=== PATIENT | female | born 1960 | race Caucasian/White ===

== ENCOUNTER → 2017-07-14 13:24 | Outpatient (CLI) | payer BC ==
[2014-10-03 08:46] VITALS: BMI 34.4
[~2017-07-14 13:24] MED LIST: HYZAAR 50-12.51 TAB PO; LEXAPRO20 MG PO; LOPID600 MG PO; PRAVACHOL20 MG PO
== END | disposition home or self-care (01) ==
LOC: D.MAMMO 09:15
DX: Z12.31 Encounter for screening mammogram for malignant neoplasm of breast (principal)

== ENCOUNTER 2018-04-13 13:00 | Emergency (ER) | payer BC ==
[~2018-04-13] VITALS: Ht 162.6 cm; Wt 81.8 kg
[2018-04-13 13:05] VITALS: Ht 162.6 cm; Wt 81.8 kg
[2018-04-13] MEDS ORDERED: PRISTIQ50 MG PO (13:08)
[2018-04-13 13:33] LABS: APPEARANCE HAZY (CLEAR); COLOR YELLOW (YELLOW)
[2018-04-13 13:34] LABS: BILIRUBIN NEGATIVE (NEGATIVE); GLUCOSE NEGATIVE (NEGATIVE); KETONE NEGATIVE (NEGATIVE); NITRITE NEGATIVE (NEGATIVE); PROTEIN 1+ mg/dL (NEGATIVE); SPECIFIC GRAVITY 1.015 (1.005-1.020); UROBILINOGEN NORMAL (NORMAL)
[2018-04-13 13:35] LABS: AMORPHOUS SEDIMENT <1+ /lpf (NONE SEEN); BACTERIA MODERATE /hpf (NONE SEEN); MUCUS <1+ /lpf (NONE SEEN)
[2018-04-13 13:36] LABS: HYALINE CAST 0-5 /lpf (NONE SEEN); RED CELLS - URINE RARE /hpf (0-5)
[2018-04-13 13:43] LABS: BASOPHILS 0.7 % (0-2); HEMOGLOBIN 14.7 g/dL (12-16); IMMATURE GRANULOCYTES 0.2 % (0-5); LYMPHOCYTES 31.1 % (15-50); MCH 31.6 pg (26.0-34.0); MCV 90.3 fL (80.0-100.0); MEAN PLATELET VOLUME 11.5 fL (7.4-10.4); MONOCYTES 5.6 % (2-11); NEUTROPHILS 59.4 % (40-80); PLATELET COUNT 308 10x3/uL (130-400); RBC 4.65 10x6/uL (4.00-5.40); RDW 13.6 % (11.5-14.5); WBC 11.8 10x3/uL (4.8-10.8)
[2018-04-13] MEDS ORDERED: MACROBID100 MG PO (14:02)
[2018-04-13 14:06] LABS: ALBUMIN 3.8 g/dL (3.4-5.0); ALKALINE PHOSPHATASE 94 U/L (46-116); ALT (SGPT) 21 U/L (10-68); BILIRUBIN - TOTAL 0.52 mg/dL (0.2-1.3); CALC OSMOLALITY 276 mosm/kg (275-300); CALCIUM 8.6 mg/dL (8.5-10.1); CARBON DIOXIDE 22.6 mmol/L (21.0-32.0); CHLORIDE - SERUM 100 mmol/L (98-107); CREATININE - SERUM 0.7 mg/dL (0.6-1.3); GLUCOSE 100 mg/dL (74-106); POTASSIUM - SERUM 4.1 mmol/L (3.5-5.1); PROTEIN - SERUM 8.4 g/dL (6.4-8.2); SODIUM 137 mmol/L (136-145); UREA NITROGEN 21 mg/dL (7-18); eGFR NON AFRICAN AMERICAN > 90 mL/min (90-120)
[2018-04-13 17:06] VITALS: BP 128/71
== END 2018-04-13 17:11 | disposition home or self-care (01) ==
LOC: D.ER 13:00
PROVIDERS: Emergency Medicine
DX: R55 Syncope and collapse (principal); T75.89XA Other specified effects of external causes, initial encounter; X58.XXXA Exposure to other specified factors, initial encounter; Y93.89 Activity, other specified; Y92.89 Other specified places as the place of occurrence of the external cause; N39.0 Urinary tract infection, site not specified; I10 Essential (primary) hypertension; F17.200 Nicotine dependence, unspecified, uncomplicated

== ENCOUNTER → 2018-04-17 13:05 | Outpatient (CLI) | payer BC ==
[2018-04-13 13:05] VITALS: BMI 30.9
[~2018-04-17 13:05] MED LIST changes: +MACROBID100 MG PO; +PRISTIQ50 MG PO
== END | disposition home or self-care (01) ==
LOC: D.CT 13:05
DX: R55 Syncope and collapse (principal)

== ENCOUNTER → 2018-08-02 20:18 | Outpatient (CLI) | payer BC ==
[2018-04-13 13:05] VITALS: BMI 30.9
== END | disposition home or self-care (01) ==
LOC: D.MAMMO 14:45
DX: Z12.31 Encounter for screening mammogram for malignant neoplasm of breast (principal)

== ENCOUNTER 2020-07-08 14:45 | Outpatient (CLI) | payer SELFPAY ==
[2018-04-13 13:05] VITALS: BMI 30.9
== END 2020-07-08 16:00 | disposition home or self-care (01) ==
LOC: D.MAMMO 14:45
PROVIDERS: ATTEND Family Medicine
DX: Z12.31 Encounter for screening mammogram for malignant neoplasm of breast (principal)